=== PATIENT | male | born 1980 | race Caucasian/White ===

== ENCOUNTER 2024-06-19 13:45 | Emergency (ER) | payer OTHER ==
[~2024-06-19] VITALS: Ht 182.9 cm; Wt 99.8 kg
[2024-06-19] MEDS ORDERED: PREG50CA PO (13:49)
[2024-06-19 14:32] LABS: *BILIRUBIN,URIN 2+ (NEGATIVE); *BLOOD, URINE 3+ (NEGATIVE); *CLARITY,URINE CLEAR (CLEAR); *COLOR,URINE Orange (YELLOW); *KETONES,URINE NEGATIVE (NEGATIVE); *PROTEIN,URINE 2+ (NEGATIVE); LEUKOCYTE ESTERASE ,URINE NEGATIVE (NEGATIVE); NITRITE, URINE NEGATIVE (NEGATIVE); UGLUCOSE NEGATIVE (NEGATIVE)
[2024-06-19 14:32] LABS: BASOPHILS % (AUTO) 0.6 % (0.0-2.0); EOSINOPHILS # (AUTO) 0.2 K/uL (0.0-0.7); EOSINOPHILS % (AUTO) 3.2 % (0.0-7.0); HEMATOCRIT 35.1 % (36.7-47.1); HEMOGLOBIN 11.9 g/dL (12.5-16.3); LYMPHOCYTES # (AUTO) 1.2 K/uL (0.8-4.8); MEAN CORPUSCULAR HEMOGLOBIN 32.5 uug (23.8-33.4); MEAN CORPUSCULAR HGB CONC 34 g/dL (32.5-36.3); MEAN CORPUSCULAR VOLUME 96.2 fL (73.0-96.2); MONOCYTES # (AUTO) 0.8 K/uL (0.1-1.30); MONOCYTES % (AUTO) 11.4 % (0.0-11.0); NEUTROPHILS # (AUTO) 4.6 K/uL (1.8-8.9); NEUTROPHILS % (AUTO) 66.8 % (38.5-71.5); PLATELET COUNT (AUTO) 84 K/uL (152-348); RED BLOOD CELL COUNT(AUTO) 3.65 MIL/uL (4.06-5.63); RED CELL DISTRIBUTION WIDTH 16.3 % (12.1-16.2); WHITE BLOOD COUNT (AUTO) 6.9 K/uL (3.6-10.2)
[2024-06-19 14:35] LABS: DIFFERENTIAL COMMENT 1
[2024-06-19 14:39] LABS: CALCIUM 7.1 mg/dL (8.5-10.1); POTASSIUM 3.5 mmol/L (3.5-5.1)
[2024-06-19 14:39] LABS: BACTERIA,URINE MODERATE /HPF (NONE SEEN); RBC,URINE 50-80 /HPF (0-3); WBC,URINE 0-3 /HPF (0-3)
[2024-06-19 14:40] LABS: URINE AMORPHOUS PHOSPHATES FEW /HPF
[2024-06-19 14:50] LABS: ALBUMIN 1.9 g/dL (3.4-5.0); BILIRUBIN,TOTAL 3.1 mg/dL (0.2-1.0); TOTAL PROTEIN, SERUM 7.1 g/dL (6.4-8.2)
[2024-06-19] MEDS ORDERED: PHYTONADIONE 10 MG/1 ML AMPUL ONE ×2 (15:57→16:02)
[2024-06-19] MEDS ORDERED: MAGNESIUM SULFATE/D5W 200 ML ONE (15:57)
[2024-06-19] MEDS: PHYTONADIONE 10 MG/1 ML AMPUL SQ ONE (16:08)
[2024-06-19] MEDS: MAGNESIUM SULFATE/D5W 100 ML IV SCH (16:08)
[2024-06-19] MEDS: MAGNESIUM CHLORIDE 64 MG TABLET.SA PO SCH (17:32)
[2024-06-19 19:28] VITALS: BP 144/76; O2SAT 99
[2024-06-20 09:12] LABS: HEPATITIS A AB, IgM Negative (Negative); HEPATITIS B SURFACE AB, QUAL Non Reactive (.); HEPATITIS C VIRUS ANTIBODY Reactive (Non Reactive)
== END 2024-06-19 17:30 | disposition home or self-care (01) ==
LOC: ER 13:45
DX: K74.60 Unspecified cirrhosis of liver (principal); R18.8 Other ascites; E88.09 Other disorders of plasma-protein metabolism, not elsewhere classified; E83.42 Hypomagnesemia; D64.9 Anemia, unspecified; D69.6 Thrombocytopenia, unspecified; E11.9 Type 2 diabetes mellitus without complications; M79.604 Pain in right leg; M79.605 Pain in left leg; R10.9 Unspecified abdominal pain; R22.43 Localized swelling, mass and lump, lower limb, bilateral; Z79.899 Other long term (current) drug therapy; Z87.39 Personal history of other diseases of the musculoskeletal system and connective tissue
CPT/HCPCS: 99285; 93970; 96365; 76700; 80076; 80048; 81001; 82140; 82607; 83036; 83735; 85025; 85044; 85730; 87086; 36415; 96372; 86803; 86709; 86706; J3475; J3430; J7040 ×2; 70030-TC; A4606; A4663